=== PATIENT | male | born 1990 ===

== ENCOUNTER 2018-03-06 10:39 | Emergency (ER) | payer OTHER ==
[2018-03-06 10:48] VITALS: BMI 19.8
[2018-03-06 10:50] VITALS: BP 101/64; PULSE 86; RESP 16; TEMP 98.5; O2SAT 98
--- NOTE | 2018-03-06 11:08 | ED PDOC ---
Upper Extremity Pain/Injury Time Seen by Provider: 03/06/18 10:57 Chief Complaint (Nursing): Upper Extremity Problem/Injury History Per: Patient Onset/Duration Of Symptoms: Days (13) Current Symptoms Are (Timing): Still Present Quality: Aching Severity: Moderate Pain Scale Rating Of: 4 Exacerbating Factor(s): Strenuous Use Of Affected Area, Movement Additional Complaint(s): Pain left shoulder x 13 days after lifting heavy boxes at work. Has been taking Advil and resting with sling with no improvement. No weakness or parasthesias. Pain worse on lifting arm above horizontal. Past Medical History Vital Signs: Last Vital Signs Temp 98.5 F 03/06/18 10:48 Pulse 86 03/06/18 10:48 Resp 16 03/06/18 10:48 BP 101/64 03/06/18 10:48 Pulse Ox 98 03/06/18 10:48 - Family History Family History: States: Unknown Family Hx - Home Medications Home Medications: Ambulatory Orders Medication Instructions Recorded Naproxen [Naprosyn] 500 mg PO Q12H #20 tab 03/06/18 traMADol [Ultram] 50 mg PO Q8 #10 tab 03/06/18 - Allergies Allergies/Adverse Reactions: Allergies Allergy/AdvReac Type Severity Reaction Status Date / Time No Known Allergies Allergy Verified 03/06/18 11:09 Review of Systems Constitutional: Negative for: Fever Musculoskeletal: Positive for: Shoulder Pain Neurological: Negative for: Weakness, Numbness Physical Exam - Physical Exam Appears: Positive for: Non-toxic, No Acute Distress Skin: Positive for: Normal Color, Warm, DRY Pulses-Radial (L): 2+ Pulses-Radial (R): 2+ Extremity: Positive for: Other (Right shoulder, no deformity or ecchymosis. Tenderness ant and post bursa. No motor or sensory deficits distally.) Neurologic/Psych: Positive for: Alert, Oriented. Negative for: Motor/Sensory Deficits - ECG O2 Sat by Pulse Oximetry: 98 Disposition - Clinical Impression Clinical Impression: Shoulder sprain - Patient ED Disposition Is Patient to be Admitted: No Counseled Patient/Family Regarding: Studies Performed, Diagnosis, Need For Followup, Rx Given - Disposition Referrals: Leodan Anderson MD [Staff Provider] - Disposition: Routine/Home Disposition Time: 11:37 Condition: FAIR Prescriptions: Naproxen [Naprosyn] 500 mg PO Q12H #20 tab traMADol [Ultram] 50 mg PO Q8 #10 tab Instructions: Shoulder Sprain Forms: [facility] (Romanian) Print Language: DANISH
--- NOTE | 2018-03-06 14:36 | RAD ---
PROCEDURE: Radiographs of the Left Shoulder HISTORY: Posttraumatic left upper extremity pain COMPARISON: AllNo prior. FINDINGS: BONES: Normal. No fracture. JOINTS: Normal. Glenohumeral and acromioclavicular joints preserved. No osteoarthritis. SOFT TISSUES: Normal. OTHER FINDINGS: None. IMPRESSION: Normal radiographs of the left shoulder.
== END 2018-03-06 12:19 | disposition home or self-care (01) ==
LOC: H.ER 10:39
DX: S43.402A Unspecified sprain of left shoulder joint, initial encounter (principal); X50.9XXA Other and unspecified overexertion or strenuous movements or postures, initial encounter; Y99.0 Civilian activity done for income or pay